=== PATIENT | male | born 1980 | race African-American/Black ===

== ENCOUNTER 2021-09-29 22:47 | Emergency (ER) | payer BC ==
[~2021-09-29] VITALS: Ht 188 cm; Wt 109.1 kg
[2021-09-30] MEDS ORDERED: ZOFRAN4 MG/TAB PO (02:05)
[2021-09-30 02:30] VITALS: BP 131/72
== END 2021-09-30 02:30 | disposition home or self-care (01) | DRG 179 ==
LOC: ED 22:47
DX: U07.1 COVID-19 (principal)

== ENCOUNTER 2024-11-09 09:01 | Emergency (ER) | payer BC ==
[~2024-11-09] VITALS: Ht 188 cm; Wt 92.0 kg
[~2024-11-09 09:01] MED LIST: ZOFRAN4 MG/TAB PO
[2024-11-09 09:20] VITALS: BP 145/74
== END 2024-11-09 09:47 | disposition home or self-care (01) | DRG 950 ==
LOC: ED 09:01
DX: S01.01XD Laceration without foreign body of scalp, subsequent encounter (principal); X58.XXXD Exposure to other specified factors, subsequent encounter